=== PATIENT | male | born 1975 | race Caucasian/White ===

== ENCOUNTER 2017-04-15 14:41 | Emergency (ER) | payer SELFPAY ==
[~2017-04-15] VITALS: Ht 177.8 cm; Wt 77.0 kg
[2017-04-15 14:52] VITALS: BP 125/73; PULSE 95; RESP 18; O2SAT 98
[2017-04-15] MEDS ORDERED: CLON1 PO (14:58)
[2017-04-15] MEDS ORDERED: TEGR200T PO (14:58)
[2017-04-15] MEDS ORDERED: carBAMazepine 200 MG TAB PO ONE (15:00)
--- NOTE | 2017-04-15 15:00 | PD ---
HPI Chief Complaint: Seizure Time Seen by Provider: 14:53 Travel History International Travel<30 days: No Contact w/Intl Traveler<30days: No Traveled to known affect area: No History of Present Illness HPI 42-year-old male with history of seizure disorder presents via EMS for evaluation of a witnessed seizure. The patient reports that he has suffered from seizures for 15 years. He is currently on a regimen of Tegretol 400 mg at night. He reports that he is currently on the road trip from [place] with his family. He reports that yesterday he was arrested for marijuana possession and he spent the night in penitentiary and thus he missed his Tegretol dose last night. Today after being released from penitentiary he had a witnessed 1 minute tonic-clonic seizure episode. He endorses tongue biting. He currently feels normal. He has slight pain in his tongue. He denies blurred vision, headache, neck pain or back pain, pain in the extremities, chest pain or shortness of breath, nausea or vomiting, weakness, confusion. He denies any recent illness. He endorses marijuana use. Denies any other illicit substance use. He reports that his seizures are typically well controlled on Tegretol and he has not had a seizure in years. He has no other complaints at this time. His last tetanus vaccination was within 5 years. [facility] Social History Alcohol Use: No Tobacco Use: No Substance Use: Yes Allergies-Medications (Allergen,Severity, Reaction): Coded Allergies: No Known Allergies (Unverified , 04/15/17) Reported Meds & Prescriptions Reported Meds & Active Scripts Active Reported Klonopin (Clonazepam) 1 Mg Tab 1 Mg PO DAILY Tegretol (Carbamazepine) 200 Mg Tab 400 Mg PO DAILY Review of Systems Except as stated in HPI: all other systems reviewed are Neg Physical Exam Narrative GENERAL well-developed well-nourished male in no acute distress SKIN: Warm and dry. Some dirt is noted on the extremities and face. HEAD: Atraumatic. Normocephalic. EYES: Pupils equal and round reactive to light extraocular muscles are intact.. No scleral icterus. No injection or drainage. ENT: No nasal bleeding or discharge. Mucous membranes pink and moist. There is a small laceration to the right side of the tongue. NECK: Trachea midline. No JVD. CARDIOVASCULAR: Regular rate and rhythm. No murmur appreciated. RESPIRATORY: No accessory muscle use. Clear to auscultation. Breath sounds equal bilaterally. GASTROINTESTINAL: Abdomen soft, non-tender, nondistended. Hepatic and splenic margins not palpable. MUSCULOSKELETAL: No obvious deformities. No clubbing. No cyanosis. No edema. NEUROLOGICAL: Awake and alert. No obvious cranial nerve deficits. Motor grossly within normal limits. Normal speech. Data Data Last Documented VS Vital Signs Date Time Temp Pulse Resp B/P (MAP) Pulse Ox O2 Delivery O2 Flow Rate FiO2 04/15/17 14:59 98 Room Air 04/15/17 14:52 95 18 125/73 (90) Orders Orders Basic Metabolic Panel (Bmp) (04/15/17 14:54) Blood Glucose (04/15/17 14:54) Carbamazepine (Tegretol) (04/15/17 15:00) Electrocardiogram (04/15/17 ) Potassium Chloride (Kcl) (04/15/17 16:00) Ed Discharge Order (04/15/17 15:51) Labs Laboratory Tests Test 04/15/17 15:20 Blood Urea Nitrogen 13 MG/DL Creatinine 1.02 MG/DL Random Glucose 129 MG/DL Calcium Level 8.8 MG/DL Sodium Level 140 MEQ/L Potassium Level 3.4 MEQ/L Chloride Level 107 MEQ/L Carbon Dioxide Level 22.3 MEQ/L Anion Gap 11 MEQ/L Estimat Glomerular Filtration Rate 80 ML/MIN MDM Medical Decision Making Medical Screen Exam Complete: Yes Emergency Medical Condition: Yes Medical Record Reviewed: Yes Differential Diagnosis Breakthrough seizure, medication noncompliance, electrolyte abnormality, hypoglycemia Narrative Course 32-year-old male with history of seizure disorder presents after missing his Tegretol dose last night secondary to being arrested. He had a 1 minute tonic- clonic seizure this morning. He will be given his regular Tegretol dose. An EKG will be obtained. The patient will be placed on ECG monitoring. Potassium is 3.4, the patient was given oral potassium chloride. He was monitored for over 1 hour with no additional complaint. He is stable for discharge. Diagnosis Primary Impression: Breakthrough seizure Additional Instructions: Take your Tegretol as prescribed. Follow-up with your neurologist. No driving, operating heavy machinery, climbing to high heights for 6 months. Return for any emergent medical conditions. Med/Other Pt SpecificInfo: No Change to Meds Disposition: 01 DISCHARGE HOME Condition: Stable Den Bolton Apr 15, 2017 15:00
[2017-04-15 15:49] LABS: BICARBONATE 22.3 MEQ/L (21.0-32.0); CALCIUM 8.8 MG/DL (8.5-10.1); CREATININE 1.02 MG/DL (0.60-1.30)
[2017-04-15] MEDS ORDERED: POTASSIUM CHLORIDE 20 MEQ CONTROLLED RELEASE TAB PO ONE (16:00)
--- NOTE | 2017-04-16 11:29 | EKG ---
Date Performed: 04/15/2017 Time Performed: 15:09:03 PTAGE: 42 years EKG: Sinus rhythm NORMAL ECG NO PREVIOUS TRACING DOCTOR: Mic Velazquez Interpretating Date/Time 04/16/2017 11:27:13
== END 2017-04-15 16:51 | disposition home or self-care (01) ==
LOC: NEPE 14:41
DX: G40.909 Epilepsy, unspecified, not intractable, without status epilepticus (principal); Z79.899 Other long term (current) drug therapy
CPT/HCPCS: 80048; 93005; 99284